=== PATIENT | female | born 1975 | race Caucasian/White ===

== ENCOUNTER 2022-09-23 11:40 | Outpatient (CLI) | payer OTHER, SELFPAY | END 2022-09-23 11:41 | disposition home or self-care (01) | LOC: CHSAUDIO 11:47 | PROVIDERS: PCP Family Medicine; Visit Provider Internal Medicine Hematology & Oncology | DX: Z01.10 Encounter for examination of ears and hearing without abnormal findings (principal) | CPT/HCPCS: 92557; 92567 ==

== ENCOUNTER 2023-06-06 12:00 | Emergency (ER) | payer OTHER, SELFPAY ==
[2023-06-06] VITALS (75 sets, daily range): BP systolic 86–111; BP diastolic 60–80; PULSE 71–114; RESP 13–35; TEMP 36.2; O2SAT 75–100
--- NOTE | ~2023-06-06 | XR_ITS ---
Portable chest x-ray Comparison: 06/06/2023 Clinical History: Hypoxia Findings: There is left-sided volume loss with leftward mediastinal shift and left lower lobe collap se, likely due to mucous plugging. Questionable minimal haziness left upper lobe. Right lung is clear . No pneumothorax. Left-sided Mediport is unchanged. Cardiomediastinal silhouette is stable. Bones a nd soft tissues are unremarkable. Impression: Left lower lobe collapse/atelectasis with associated left-sided volume loss. Reviewed, dictated and finalized at location M. Impression: Left lower lobe collapse/atelectasis with associated left-sided volume loss.
--- NOTE | ~2023-06-06 | CT_ITS ---
EXAMINATION: CT abdomen pelvis wo con DATE: 06/06/2023 17:15 INDICATION: Abdominal pain TECHNIQUE: Computed tomography (CT) of the abdomen and pelvis was performed without intravenous contr ast. Automated exposure control and iterative reconstruction technique were employed. The dose-length product was 169.88 mGy-cm. COMPARISON: None FINDINGS: Small patchy regions of consolidation with surrounding small centrilobular nodules and tree-in-bud pa ttern and groundglass opacity in the basilar left lower lobe. More subtle small region of tree-in-bud opacity in the basilar right lower lobe. There is an associated mucous plugging in both lower lobes. No pulmonary edema or pleural effusion. Heart size is normal. Caudal tip of a central venous cathete r seen at the superior cavoatrial junction. Atherosclerotic coronary artery calcific lesion. No peric ardial effusion. There is moderate amount of free intraperitoneal gas in the nondependent abdomen. Percutaneous gastro stomy tube bulb in the proximal body of the stomach and percutaneous gastrojejunostomy tube with bulb within the more distal body and catheter extending into the proximal jejunum approximately 15 cm bey ond the level of the ligament of Treitz. Liver, gallbladder, spleen, pancreas and bilateral adrenal g lands are normal. Multiple calcifications in the bilateral kidneys which could represent atherosclero tic calcifications, nonobstructing nephrolithiasis or combination thereof. There is a small wedge-sha ped region of dystrophic parenchymal calcific lesion at the upper pole of the left kidney. No hydrone phrosis. Bladder and retroverted uterus are unremarkable. There are surgical clips in the left and ri ght pelvis. Oral contrast material extends throughout the colon to the level of the rectum and is als o seen within the normal appendix. No dilated bowel to suggest obstruction. No abscess or evident guillermo e intraperitoneal fluid. No pathologically enlarged abdominal or pelvic lymphadenopathy. Chronic appe aring mild likely physiologic anterior wedging at T11-L1. IMPRESSION: 1. Opacities in the bilateral lower lobes, left greater than right with appearance and distribution f avoring endobronchial spread of disease including aspiration and/or pneumonia. 2. Moderate amount of free intraperitoneal gas which is likely related to the recently placed percuta neous gastrostomy tube and gastrojejunostomy tubes. Although could not exclude perforated viscus, the re are no other CT findings to suggest a source or elevate the level of suspicion. Dr. Frohnert discu ssed these findings with Dr. Esteves at 5:35 PM. 3. Multiple atherosclerotic calcifications and/or nonobstructing nephrolithiasis at the bilateral kid neys. Reviewed, dictated and finalized at location A. IMPRESSION: 1. Opacities in the bilateral lower lobes, left greater than right with appeara nce and distribution favoring endobronchial spread of disease including aspirat ion and/or pneumonia. 2. Moderate amount of free intraperitoneal gas which is likely related to the r ecently placed percutaneous gastrostomy tube and gastrojejunostomy tubes. Altho ugh could not exclude perforated viscus, there are no other CT findings to sugg est a source or elevate the level of suspicion. Dr. Burkett discussed these fi ndings with Dr. Esteves at 5:35 PM. 3. Multiple atherosclerotic calcifications and/or nonobstructing nephrolithiasi s at the bilateral kidneys.
--- NOTE | ~2023-06-06 | CT_ITS ---
EXAMINATION: CTA chest PE protocol DATE: 06/07/2023 12:01 INDICATION: Hypoxia. Shortness of breath. Low oxygen. History of lung and breast cancer. TECHNIQUE: Computed tomography angiography (CTA) of the chest was performed with 80 mL Omnipaque-350 intravenous contrast timed to evaluate the pulmonary arteries. Coronal maximum intensity projection 3 D-reconstructions were created by the technologist. Automated exposure control and iterative reconstr uction technique were employed. Exam dose: 144.68 mGy-cm total exam DLP. COMPARISON: 06/07/2023 chest 06/06/2023 2 view chest FINDINGS: There is diagnostic contrast enhancement of the pulmonary arteries and no evidence of pulmo nary embolism. Normal heart size. No pericardial effusion. No thoracic aortic aneurysm or dissection. There is an ET tube in the trachea There is extensive patchy consolidation of the left upper lobe and particularly lingula and atelectas is/consolidation of the left lower lobe with air bronchograms. There is associated leftward shift of the heart mediastinum. There are calcified right hilar and subcarinal nodes consistent with old pulmonary granulomatous dise ase. The right lung is clear of infiltrate or consolidation no pleural effusions or pneumothorax. IMPRESSION: No evidence of pulmonary embolism Extensive atelectasis and consolidation of the left upper lobe, especially lingula and complete atele ctasis/consolidation of the left lower lobe; associated prominent leftward shift of heart and mediast inum Reviewed, dictated and finalized at Location A. Reviewed, dictated and finalized at location B. IMPRESSION: No evidence of pulmonary embolism Extensive atelectasis and consolidation of the left upper lobe, especially ling lita and complete atelectasis/consolidation of the left lower lobe; associated p rominent leftward shift of heart and mediastinum
--- NOTE | ~2023-06-06 | XR_ITS ---
XR chest 2V DATE: 06/06/2023 12:42 INDICATION: Increased shortness of breath for one week. History of COPD, asthma. TECHNIQUE: 2 views, AP and lateral projections COMPARISON: 01/19/2022 portable AP chest FINDINGS: Of concern is the presence of free air beneath the diaphragm; if there has been no recent a bdominal surgery, ruptured hollow abdominal viscus is suspected. Left Port-A-Cath catheter tip overlies upper right atrium. Bilateral pulmonary hyperinflation. No pulmonary infiltrate or consolidation, pleural effusion or pul monary vascular congestion or pneumothorax is detected. Approximately 12 mm nodular density overlies the left lower lung, superimposing the anterior left fif th costochondral area; this might be nipple shadow but pulmonary nodular mass is not excluded. Repeat examination with nipple markers may be helpful. No pulmonary infiltrate or consolidation, pleural effusion or pulmonary vascular congestion or pneumo thorax is detected. IMPRESSION: Intraperitoneal free air; if the patient has not had a recent abdominal surgery, ruptured hollow abdominal viscus is likely Possible left lower lung pulmonary nodule versus nipple shadow; consider repeat with nipple markers Bilateral hyperinflation consistent with obstructive airways disease Left Port-A-Cath catheter tip overlying upper right atrium Dr. Sheikh notified Dr. Esteves, ER physician, of the presence of large amount of intraperitoneal free a ir on 06/06/2023 at 1304 hours. Surgical consultation was recommended by Dr. Sheikh to Dr. Esteves. Reviewed, dictated and finalized at location A. IMPRESSION: Intraperitoneal free air; if the patient has not had a recent abdom inal surgery, ruptured hollow abdominal viscus is likely Possible left lower lung pulmonary nodule versus nipple shadow; consider repeat with nipple markers Bilateral hyperinflation consistent with obstructive airways disease Left Port-A-Cath catheter tip overlying upper right atrium Dr. Sheikh notified Dr. Esteves, ER physician, of the presence of large amount of intraperitoneal free air on 06/06/2023 at 1304 hours. Surgical consultation was recommended by Dr. Sheikh to Dr. Esteves.
--- NOTE | ~2023-06-06 | XR_ITS ---
Portable chest x-ray Comparison: 06/07/2023 at 11:14 AM Clinical History: Tube placement Findings: Endotracheal tube is in satisfactory position. Left-sided Mediport is unchanged. There is probable complete left lung collapse with probable mucous plugging at the left mainstem bronchus. The re is associated leftward mediastinal shift and left-sided volume loss. Right lung clear. Cardiomedi astinal silhouette is stable. Bones and soft tissues are unremarkable. Impression: Complete left lung collapse. Support tubes, as above. Right lung clear. Reviewed, dictated and finalized at location M. Impression: Complete left lung collapse. Support tubes, as above. Right lung clear.
--- NOTE | 2023-06-06 12:18 | ECG_ITS ---
Measurements Intervals [place] Rate: 108 P: 81 CT: 113 QRS: 56 QRSD: 83 T: 194 QT: 407 QTc: 546 Interpretive Statements SINUS TACHYCARDIA WITH SHORT CT INTERVAL POSSIBLE RIGHT ATRIAL ENLARGEMENT [0.25mV P-WAVE] POSSIBLE LEFT ATRIAL ENLARGEMENT [-0.1mV P-WAVE IN V1/V2] ST AND T-WAVE ABNORMALITY, CONSIDER INFERIOR AND ANTEROLATERAL ISCHEMIA ABNORMAL ECG NO PREVIOUS ECG AVAILABLE FOR COMPARISON Electronically Signed On 06-07-2023 12:07:49 CDT by Jaya Bhatti M.D.
--- NOTE | 2023-06-06 12:19 | ED.WEAKNESS ---
HPI - Weakness General Chief complaint: Weakness <Les Esteves MD - Last Filed: 06/08/23 09:54> Stated complaint: weakness <Les Esteves MD - Last Filed: 06/08/23 09:54> Time Seen by Provider: 06/06/23 12:18 <Les Esteves MD - Last Filed: 06/08/23 09:54> Source: patient and family <Les Esteves MD - Last Filed: 06/08/23 09:54> Mode of arrival: wheelchair <Les Esteves MD - Last Filed: 06/08/23 09:54> Limitations: clinical condition <Les Esteves MD - Last Filed: 06/08/23 09:54> History of Present Illness HPI Narrative: 47 yo F with history of COPD, lung cancer, lumpectomy for possible breast cancer in the past, presents to [facility] ED for generalized weakness for 1 week. She had her second chemotherapy treatment for lung cancer also a week ago. Said she's also short of breath. She does not use O2 at home. She also has a GJ-tube placed that is not currently in use due to complications. She currently has a drainage tube placed that drains bilious materials out of her abdomen. Her surgeon is at [facility] in [place], [place]. She had the drain placement 2 days ago and instead of staying for monitoring, signed out AMA. On arrival to the ED, her O2 sat was 75%, which improved to 89-90% with 6L O2 by NC. Patient stated that she does not wish to be intubated but BIPAP is acceptable. <Les Esteves MD - Last Filed: 06/08/23 09:54> MD Complaint: generalized weakness <Les Esteves MD - Last Filed: 06/08/23 09:54> Onset (ago): day(s) <Les Esteves MD - Last Filed: 06/08/23 09:54> Duration: constant <Les Esteves MD - Last Filed: 06/08/23 09:54> Location: generalized <Les Esteves MD - Last Filed: 06/08/23 09:54> Migration: none <Les Esteves MD - Last Filed: 06/08/23 09:54> Severity: severe <Les Esteves MD - Last Filed: 06/08/23 09:54> Relieving factors: none <Les Esteves MD - Last Filed: 06/08/23 09:54> Exacerbating factors: none <Les Esteves MD - Last Filed: 06/08/23 09:54> Context: recent illness <Les Esteves MD - Last Filed: 06/08/23 09:54> Related Data Home medications: Home Medications Medication Instructions Recorded Confirmed buspirone 30 mg tablet 30 mg feeding tube BID 06/06/23 06/07/23 morphine 15 mg immediate release See Rx Instructions .Route .COMPLEX 06/06/23 06/06/23 tablet ondansetron HCl 8 mg tablet 8 mg feeding tube PRN PRN Nausea 06/06/23 06/06/23 sertraline 100 mg tablet 100 mg feeding tube DAILY 06/06/23 06/06/23 <Les Esteves MD - Last Filed: 06/08/23 09:54> Allergies/Adverse reactions: Allergies Allergy/AdvReac Type Severity Reaction Status Date / Time No Known Allergies Allergy Verified 06/06/23 12:40 <Les Esteves MD - Last Filed: 06/08/23 09:54> Review of Systems Review of Systems: All systems reviewed & are unremarkable except as noted in HPI and below <Les Esteves MD - Last Filed: 06/08/23 09:54> Exam Const: General: no acute distress, alert, awake and ill appearing <Les Esteves MD - Last Filed: 06/08/23 09:54> Nutritional Appearance: thin <Les Esteves MD - Last Filed: 06/08/23 09:54> Orientation/consciousness: oriented to person, oriented to place and oriented to time <Les Esteves MD - Last Filed: 06/08/23 09:54> Limitations: physical limitations <Les Esteves MD - Last Filed: 06/08/23 09:54> HENMT: Head: normal to inspection <Les Esteves MD - Last Filed: 06/08/23 09:54> Ears: hearing grossly normal bilaterally, external ears normal and TM's normal bilaterally <Les Esteves MD - Last Filed: 06/08/23 09:54> Face/Nose/Sinus: Normal external nose present, Normal nares present, No nasal polyps present, Normal nasal mucous membranes and turbinates present, Normal septum present, No nasal discharge present, normal facial exam, sinuses nontender and face symmetric <Les Esteves MD - Last Filed: 06/08/23 09:54> Face and sinus: normal fac
[2023-06-06 13:01] LABS: Base Excess ABG 14.4 mmol/L (0-2); HCO3 ABG 35.9 mmol/L (23-29); Oxygen Content ABG 16.7 %vol (16.0-22.0); Oxygen Saturation ABG 92.5 % (95-97); Oxyhemoglobin 91.5 % (94-100); PCO2 ABG 33.5 mmHg (35-45); PO2 ABG 59.5 mmHg (80-90)
[2023-06-06 13:04] LABS: Device NASAL CANNULA; Modified Allen's Test Pass; Site Drawn RIGHT RADIAL
[2023-06-06 13:05] LABS: pH ABG 7.65 (7.35-7.45)
[2023-06-06 13:09] LABS: Basophils Absolute Auto 0.03 K/mm3 (0.00-0.10); Basophils Percent Auto 0.3 % (0.0-1.0); Eosinophils Absolute Auto 0.05 K/mm3 (0.02-0.50); Eosinophils Percent Auto 0.4 % (1.0-6.0); Hematocrit 37.7 % (35.0-49.0); Hemoglobin 12.7 g/dL (12.0-15.0); Immature Granulocyte Absolute 0.06 K/mm3 (0.00-0.00); Immature Granulocyte Percent A 0.5 % (0.0-0.0); Lymphocytes Absolute Auto 0.98 K/mm3 (1.10-4.50); Lymphocytes Percent Auto 8.8 % (18.0-42.0); Mean Corpuscular HGB Conc 33.7 g/dL (32.0-36.0); Mean Corpuscular Hemoglobin 29.9 pg (27.0-31.0); Mean Corpuscular Volume 88.7 fL (78.0-102.0); Mean Platelet Volume 10.7 fl (9.2-11.8); Monocytes Absolute Auto 0.53 K/mm3 (0.10-0.90); Monocytes Percent Auto 4.8 % (2.0-11.0); Neutrophils Absolute Auto 9.5 K/mm3 (1.7-7.2); Neutrophils Percent Auto 85.2 % (50.0-70.0); Platelet Count Result 325 K/mm3 (150-420); Red Blood Count 4.25 M/mm3 (4.20-5.40); Red Cell Distribution Width 13.8 % (11.6-14.4); White Blood Count 11.1 K/mm3 (4.8-10.8)
[2023-06-06 13:24] LABS: Alanine Aminotransferase 133 U/L (14-59); Albumin Level 3.6 g/dL (3.4-5.0); Alkaline Phosphatase 179 U/L (46-116); Anion Gap 6 mmol/L (8-16); Aspartate Amino Transferase 60 U/L (15-37); Bilirubin,Total 1.1 mg/dL (0.00-1.00); Blood Urea Nitrogen 51 mg/dL (7-18); Calcium 9.5 mg/dL (8.5-10.1); Carbon Dioxide 41 mmol/L (21-32); Chloride 87 mmol/L (98-108); Estimated Glomerular Filt Rate 27; Glucose 106 mg/dL (70-99); Osmolality Calculated 291 mOsm/kg (285-295); Sodium 134 mmol/L (136-145); Total Protein 8.5 g/dL (6.4-8.2)
[2023-06-06 13:26] LABS: Potassium 1.9 mmol/L (3.5-5.1)
[2023-06-06] MEDS: HYDROmorphone HCL INJ (*CRX) 2 MG/ML VIAL 0.25 MG IV PUSH (13:53)
[2023-06-06] MEDS: KCL 40 MEQ/0.9% SOD CHL 1,000 ML 250 ML IV CONT ×2 (13:54→21:25)
[2023-06-06 14:27] LABS: Lactic Acid Reflex 1.2 mmol/L (0.4-2.0)
[2023-06-06] MEDS: PIPERACILLIN/TAZ 2.25G/NS 50ML 2.25 GM/50 ML BAG IVPB ×2 (14:45→20:06)
[2023-06-06 16:42] LABS: Troponin I 45.4 ng/L (0.00-60.4)
[2023-06-06] MEDS: IPRATROPIUM 0.5 MG/ALBUTEROL SULFATE 2.5 MG AMPUL.NEB 3 ML INHALATION (17:11)
[2023-06-06] MEDS: methylPREDNISolone SOD SUCC 125 MG VIAL IV PUSH (17:11)
--- NOTE | 2023-06-06 17:35 | PC.NURSE ---
PT RESTING PER BED, CALL [facility] IN [place], FAMILY AT BEDSIDE. DISCUSSED WITH PT AND FAMILY MEMBERS NO BED AVAILABILITY AT [facility]. ACCEPTANCE HAS BEEN DECLINED AT [facility]. OFFERED TO CALL [facility] OR OTHER HOSPITALS. PT AND FAMILY DECLINED. WILL WAIT FOR PLACEMENT AT [facility] SINCE HER DOCTOR AND ONCOLOGIST IS THERE.
[2023-06-06] MEDS: DEXTROSE 5%/0.45% SOD CHL 1,000 ML 100 ML IV CONT (18:07)
[2023-06-06 18:09] LABS: Potassium 2.7 mmol/L (3.5-5.1)
--- NOTE | 2023-06-06 18:12 | PC.NURSE ---
pt able to drink bottle of chocolate ensure.
--- NOTE | 2023-06-06 19:03 | PC.NURSE ---
REPORT TO KITA LACY. ALL QUESTIONS ANSWERED.
[2023-06-06 20:03] LABS: Appearance Urine Clear (Clear); Bilirubin Urine 1+ (Negative); Blood Urine Negative (Negative); Color Urine Light Yellow (Yellow); Glucose Urine UA Negative (Negative); Ketones Urine Negative (Negative); Leukocyte Esterase Ur Negative LEU/UL (Negative); Nitrate Urine Negative (Negative); Protein Urine 1+ (Negative); Urobilinogen Urine 0.2 mg/dL (0.2-1.0); pH Urine 7.5 (5.0-8.0)
[2023-06-06 20:15] LABS: Add Urine Microscopic? YES; Amorphous Sediment Urine Few; RBC Urine 0-2 /hpf (0-2); Squamous Epithelial Cell Urine Few /hpf (Few); WBC Urine 0-3 /hpf (0-3)
--- NOTE | 2023-06-06 20:15 | PC.NURSE ---
Addendum entered by Fina Pimentel RN 06/07/23 02:40: Pt up to bedside commode at this time. Original Note: Pt's bag that is hooked up to G-tube emptied at this time. 900mls of green liquid emptied at this time.
--- NOTE | 2023-06-06 22:00 | PC.NURSE ---
Pt placed in hospital bed at this time.
[2023-06-07] VITALS (69 sets, daily range): BP systolic 87–176; BP diastolic 55–94; PULSE 67–137; RESP 9–41; TEMP 36.7; O2SAT 5–100
[2023-06-07] MEDS: DEXTROSE 5%/0.45% SOD CHL 1,000 ML 100 ML IV CONT (02:24)
[2023-06-07] MEDS: PIPERACILLIN/TAZ 2.25G/NS 50ML 2.25 GM/50 ML BAG IVPB ×2 (02:25→10:35)
[2023-06-07 02:26] LABS: Potassium 2.9 mmol/L (3.5-5.1)
--- NOTE | 2023-06-07 02:38 | PC.NURSE ---
MD updated on new potassium level, holding potassium dose at this time per MD.
--- NOTE | 2023-06-07 02:40 | PC.NURSE ---
Pt up to bedside commode at this time.
[2023-06-07] MEDS: HYDROmorphone HCL INJ (*CRX) 2 MG/ML VIAL 0.25 MG IV PUSH (02:46)
--- NOTE | 2023-06-07 03:45 | PC.NURSE ---
Report recieved from Gabriella Harden. Pt currently sleeping c sister at bedside. VSS. RR even and nonlabored, monitor in place showing NSR. Call harris at pt side.
[2023-06-07 05:37] LABS: Estimated CRCL calculation 20 ml/min; Estimated Glomerular Filt Rate 31
--- NOTE | 2023-06-07 05:48 | PC.NURSE ---
Pt continues to sleep, no changes, VSS, still awaiting bed for placement at [facility].
--- NOTE | 2023-06-07 09:13 | PC.NURSE ---
patient states difficulty breathing, erp is aware and duo neb ordered.
[2023-06-07] MEDS: IPRATROPIUM 0.5 MG/ALBUTEROL SULFATE 2.5 MG AMPUL.NEB 3 ML INHALATION (09:21)
--- NOTE | 2023-06-07 09:30 | PC.NURSE ---
patient states she is having chest pain, erp verbal order for EKG and troponin ordered.
--- NOTE | 2023-06-07 09:35 | ECG_ITS ---
Measurements Intervals [place] Rate: 81 P: 77 DE: 104 QRS: 63 QRSD: 90 T: 25 QT: 455 QTc: 529 Interpretive Statements SINUS RHYTHM WITH SHORT DE INTERVAL ST DEVIATION AND MODERATE T-WAVE ABNORMALITY, CONSIDER ANTEROLATERAL ISCHEMIA [-0.1+ mV T-WAVE IN V3-V6] ST DEVIATION AND MODERATE T-WAVE ABNORMALITY, CONSIDER INFERIOR ISCHEMIA [-0.1+ mV T-WAVE IN II/aVF] PROLONGED QT INTERVAL ABNORMAL ECG COMPARED TO ECG 06/06/2023 12:44:40 SINUS RHYTHM NOW PRESENT Electronically Signed On 06-07-2023 12:08:36 CDT by Jaya Bhatti M.D.
--- NOTE | 2023-06-07 10:15 | PC.NURSE ---
patient requesting medication for anxiety, states her chest hurts and is short of breath.
--- NOTE | 2023-06-07 10:15 | PC.NURSE ---
erp made aware patient's o2 sats are dropping to the low 80's high 70's/
[2023-06-07] MEDS: LORazepam INJ (*CRX) 2 MG/ML VIAL 1 MG IV PUSH (10:31)
--- NOTE | 2023-06-07 10:40 | PC.NURSE ---
Erp made aware patients o2 sats are not improving and have dropping into the 50's and 40's he states order an ABG.
[2023-06-07] MEDS: MIDAZOLAM HCL (*CRX) 2 MG/2 ML VIAL 8 MG IV PUSH (10:50)
--- NOTE | 2023-06-07 10:50 | PC.NURSE ---
patient's o2 sats are not improving regardless of interventions by RN and Cardiopulmonary, patient moved to room 7 to prep for intubation.
[2023-06-07] MEDS: SUCCINYLCHOLINE CHLORIDE 20 MG/ML 10 ML VIAL 50 MG IV PUSH ×2 (10:55→11:19)
[2023-06-07 10:57] LABS: Base Excess ABG 6.3 mmol/L (0-2); HCO3 ABG 27.5 mmol/L (23-29); Oxygen Content ABG 9.4 %vol (16.0-22.0); Oxygen Saturation ABG 58.6 % (95-97); Oxyhemoglobin 58.2 % (94-100); PCO2 ABG 28.9 mmHg (35-45); Total Hemoglobin 11.5 g/dL (12.0-18.0)
[2023-06-07 10:59] LABS: Device NON-REBREATHER MASK; Modified Allen's Test Pass; PO2 ABG 27.1 mmHg (80-90); Site Drawn RIGHT RADIAL
[2023-06-07] MEDS: MIDAZOLAM HCL (*CRX) 5 MG/ML VIAL 10 MG (11:15)
--- NOTE | 2023-06-07 11:22 | PC.NURSE ---
Patient intubated at 1122 with a size7 tube.
[2023-06-07] MEDS: MIDAZOLAM 100MG/NS 100ML(*CRX) 100 MG/100 ML BAG 10 MG (11:30)
[2023-06-07 11:54] LABS: Base Excess ABG 5.5 mmol/L (0-2); HCO3 ABG 31.2 mmol/L (23-29); Oxygen Content ABG 3.7 %vol (16.0-22.0); Oxygen Saturation ABG 22.8 % (95-97); Oxyhemoglobin 22.4 % (94-100); PCO2 ABG 50.7 mmHg (35-45); Total Hemoglobin 11.8 g/dL (12.0-18.0); pH ABG 7.41 (7.35-7.45)
[2023-06-07 11:55] LABS: Device VENTILATOR; Modified Allen's Test Pass; PO2 ABG 18.6 mmHg (80-90); Site Drawn LEFT RADIAL
[2023-06-07 12:10] LABS: Arterial Blood Gas Vent Mode CMV; Arterial Blood Gas Ventilator rate 16 /MIN
[2023-06-07 12:11] LABS: Arterial Blood Gas PEEP 5 cmH2O; Arterial Blood Gas Tidal Volume 450 ml; Fractional Inspired Oxygen 100 %
[2023-06-07 12:34] LABS: Base Excess ABG 4.2 mmol/L (0-2); HCO3 ABG 28.6 mmol/L (23-29); Oxygen Content ABG 5.6 %vol (16.0-22.0); Oxygen Saturation ABG 34.7 % (95-97); Oxyhemoglobin 34.4 % (94-100); PCO2 ABG 42.2 mmHg (35-45); Total Hemoglobin 11.6 g/dL (12.0-18.0); pH ABG 7.45 (7.35-7.45)
[2023-06-07 12:35] LABS: Fractional Inspired Oxygen 100 %; PO2 ABG 22.9 mmHg (80-90)
[2023-06-07 12:36] LABS: Device VENTILATOR
[2023-06-07 12:42] LABS: Arterial Blood Gas Vent Mode CMV
[2023-06-07 12:44] LABS: Arterial Blood Gas PEEP 5 cmH2O; Arterial Blood Gas Tidal Volume 450 ml; Arterial Blood Gas Ventilator rate 16 /MIN
--- NOTE | 2023-06-09 17:05 | PC.NURSE ---
mrsa screen final results: isolate : MRSA isolated. spoke with [facility] at [facility], she is aware of results.
--- NOTE | 2023-06-12 14:50 | PC.NURSE ---
final blood culture results; no growth after 5 days, no further treatment or action needed.
== END 2023-06-07 13:27 | disposition short-term general hospital (02) ==
PROVIDERS: Emergency Medicine; Emergency Provider Emergency Medicine; PCP Family Medicine
DX: E43 Unspecified severe protein-calorie malnutrition (principal); J44.1 Chronic obstructive pulmonary disease with (acute) exacerbation; C34.90 Malignant neoplasm of unspecified part of unspecified bronchus or lung; G89.18 Other acute postprocedural pain; R10.9 Unspecified abdominal pain; J18.9 Pneumonia, unspecified organism; J96.90 Respiratory failure, unspecified, unspecified whether with hypoxia or hypercapnia; C06.9 Malignant neoplasm of mouth, unspecified; Z68.1 Body mass index [BMI] 19.9 or less, adult; Z85.3 Personal history of malignant neoplasm of breast
CPT/HCPCS: 31500; 36415; 36600; 71045; 71046; 71275; 74176; 80053; 81001; 82565; 82805; 83605; 84132; 84484; 85025; 87040; 87081; 93005; 94640; 96361; 96365; 96366; 96367; 96368; 96375; 99291; J0330; J1170; J2060; J2250; J2543; J2930; J3370; Q9967

== ENCOUNTER 2023-06-15 13:24 | Outpatient (CLI) | payer OTHER, SELFPAY ==
--- NOTE | ~2023-06-15 | XR_ITS ---
EXAMINATION: XR chest 2V Exam Date/Time: 06/15/2023 13:30 CDT HISTORY: Pneumonia FOLLOW UP Comparison: 06/07/2023; CTPA 06/07/2023. RESULT: Lines, tubes, and devices: Implanted left chest port terminating in the right atrium. Lungs and pleura: Persistent subsegmental airspace opacities in the left lower lung. Minimal bilater al posterior costophrenic angle blunting. Cardiomediastinal silhouette: Stable. Other: No acute osseous or upper abdominal finding. IMPRESSION: Improving left lung atelectasis/consolidation. Trace bilateral effusions versus chronic pleural paren chymal scarring. Reviewed, dictated and finalized at location K. IMPRESSION: Improving left lung atelectasis/consolidation. Trace bilateral effusions versus chronic pleural parenchymal scarring.
== END 2023-06-15 13:25 | disposition home or self-care (01) ==
LOC: CHSIMG 13:26
PROVIDERS: PCP Family Medicine; Visit Provider Physician Assistant
DX: J18.9 Pneumonia, unspecified organism (principal); R91.8 Other nonspecific abnormal finding of lung field
CPT/HCPCS: 71046

== ENCOUNTER 2023-06-24 15:29 | Outpatient (CLI) | payer OTHER, SELFPAY ==
[2023-06-24 16:09] LABS: Hematocrit 30.7 % (35.0-49.0); Hemoglobin 9.7 g/dL (12.0-15.0); Mean Corpuscular HGB Conc 31.6 g/dL (32.0-36.0); Mean Corpuscular Hemoglobin 31.8 pg (27.0-31.0); Mean Corpuscular Volume 100.7 fL (78.0-102.0); Mean Platelet Volume 12.7 fl (9.2-11.8); Platelet Count Result 401 K/mm3 (150-420); Red Blood Count 3.05 M/mm3 (4.20-5.40); Red Cell Distribution Width 19.5 % (11.6-14.4); White Blood Count 4.7 K/mm3 (4.8-10.8)
[2023-06-24 16:33] LABS: Alanine Aminotransferase 17 U/L (14-59); Albumin Level 2.4 g/dL (3.4-5.0); Alkaline Phosphatase 97 U/L (46-116); Anion Gap 10 mmol/L (8-16); Aspartate Amino Transferase < 10 U/L (15-37); Bilirubin,Total 0.8 mg/dL (0.00-1.00); Blood Urea Nitrogen 12 mg/dL (7-18); Calcium 8.5 mg/dL (8.5-10.1); Carbon Dioxide 24 mmol/L (21-32); Chloride 98 mmol/L (98-108); Estimated Glomerular Filt Rate > 60; Glucose 88 mg/dL (70-99); Magnesium 2.3 mg/dL (1.8-2.4); Osmolality Calculated 272 mOsm/kg (285-295); Sodium 132 mmol/L (136-145); Total Protein 6.9 g/dL (6.4-8.2)
[2023-06-24 16:45] LABS: Band Neutrophils Percent 1 % (0-6); Basophils Percent Manual 0 % (0-1); Eosinophils Absolute Manual 0.14 K/mm3 (0.02-0.5); Eosinophils Percent Manual 3 % (1-6); Lymphocytes Absolute Manual 0.89 K/mm3 (1.1-4.5); Lymphocytes Percent Manual 19 % (18-44); Monocytes Absolute Manual 0.09 K/mm3 (0.1-0.90); Monocytes Percent Manual 2 % (3-9); Neutrophils Absolute Manual 3.57 K/mm3 (1.7-7.2); Neutrophils Percent Manual 75 % (46-73); Platelet Estimate Adequate (Adequate); Total Cells Counted 100
== END 2023-06-24 15:30 | disposition home or self-care (01) ==
PROVIDERS: PCP Family Medicine; Visit Provider Internal Medicine Hematology & Oncology
DX: C06.2 Malignant neoplasm of retromolar area (principal)
CPT/HCPCS: 36415; 80053; 83735; 85025

== ENCOUNTER 2023-06-25 18:19 | Outpatient (CLI) | payer OTHER, SELFPAY ==
[2023-06-25 19:36] LABS: Anion Gap 7 mmol/L (8-16); Blood Urea Nitrogen 12 mg/dL (7-18); Calcium 8.6 mg/dL (8.5-10.1); Carbon Dioxide 29 mmol/L (21-32); Chloride 101 mmol/L (98-108); Estimated Glomerular Filt Rate > 60; Glucose 116 mg/dL (70-99); Osmolality Calculated 284 mOsm/kg (285-295); Potassium 4.1 mmol/L (3.5-5.1); Sodium 137 mmol/L (136-145)
== END 2023-06-25 18:20 | disposition home or self-care (01) ==
PROVIDERS: PCP Family Medicine; Visit Provider Physician Assistant
DX: E87.5 Hyperkalemia (principal)
CPT/HCPCS: 36415; 80048

== ENCOUNTER 2023-08-09 12:22 | Outpatient (CLI) | payer OTHER, SELFPAY ==
[2023-08-09] MEDS: EPOETIN ALFA EPBX 40000 UNIT/ML SUB-Q (12:52)
[2023-08-09 12:56] VITALS: BMI 17.2
[2023-08-09 12:57] VITALS: BP 122/69; PULSE 92; RESP 14; TEMP 36.6; O2SAT 97
--- NOTE | 2023-08-09 12:58 | PC.NURSE ---
Patient here for Retacrit injection. Per Dr. Federioc urias to give off Wednesday08/06/23 blood work. Hgb 9.9. Education given. All concerns answered. Retacrit injection administered. *see MAR. Tolerated well. Safe exit of hospital per ambulatory and self.
== END 2023-08-09 12:23 | disposition home or self-care (01) ==
LOC: CHSLAB 12:25 → CHSTREATRM 12:49
PROVIDERS: PCP Family Medicine; Visit Provider Internal Medicine Hematology & Oncology
DX: D64.81 Anemia due to antineoplastic chemotherapy (principal)
CPT/HCPCS: 96372; Q5106

== ENCOUNTER 2023-08-15 17:05 | Emergency (ER) | payer OTHER, SELFPAY ==
[2023-08-15] VITALS (15 sets, daily range): BP systolic 99–136; BP diastolic 57–89; PULSE 100–142; RESP 12–24; TEMP 36.6–36.7; O2SAT 95–98
--- NOTE | ~2023-08-15 | CT_ITS ---
EXAMINATION: CT abdomen pelvis wo con DATE: 08/15/2023 18:12 INDICATION: Lower abdominal pain with nausea and vomiting TECHNIQUE: Computed tomography (CT) of the abdomen and pelvis was performed without intravenous contr ast. Automated exposure control and iterative reconstruction technique were employed. The dose-length product was 176.31 mGy-cm. COMPARISON: CT dated 06/06/2023 FINDINGS: Again seen is bronchial plugging with bubbly mucus in the right lower lobe. There is been some improv ement in tree-in-bud opacities in the left lower lobe but with new mild tree-in-bud opacities in the posterior lingula which are consistent with endobronchial spread of disease either aspiration or pneu monia. Mild discoid atelectasis in the left lower lobe and lingula. No pleural effusion. Heart size i s normal. Small pericardial effusion. Atherosclerotic coronary artery calcifications. Tip of a director internal control al jugular central venous catheter extends caudally to the mid right atrium. There is elevation the l eft hemidiaphragm likely resulting from marked fluid distention of the stomach which is refluxing thr ough the open gastroesophageal junction into the distal esophagus. Percutaneous gastrojejunostomy tub e which extends approximately 12 cm beyond the level of the ligament of Treitz into the proximal jeju num with the distal tip in the left pelvis. Liver, gallbladder, spleen, pancreas and bilateral adrena l glands are normal. Again seen are multiple calcifications at the bilateral renal arabella with pattern favoring atherosclerotic calcifications rather than nonobstructing nephrolithiasis. No dilated loops of bowel to suggest obstruction. Normal appendix. Nearly decompressed bladder and retroverted uterus are unremarkable. 2 left-sided and one right-sided tubal ligation clips in the region of the adnexa. No free intraperitoneal gas or fluid. No pathologically enlarged abdominal or pelvic lymphadenopathy. Likely physiologic mild anterior wedging at T11 and T12. IMPRESSION: 1. Mucous plugging in the right lower lobar bronchi and tree-in-bud opacities with some improvement i n the left lower lobe and new in the lingula which suggests either evolving pneumonia or aspiration. 2. Marked fluid distention of the stomach with reflux of fluid into the visualized lower esophagus. 3. Unchanged percutaneous gastrojejunostomy tube. The prior percutaneous gastrostomy tube has been re moved. 4. Multiple unchanged calcifications at the bilateral renal arabella with configuration favoring atherosc lerotic calcification over nonobstructing nephrolithiasis. 5. Unchanged small pericardial effusion. Reviewed, dictated and finalized at location A. KDOWN WORKER IMPRESSION: 1. Mucous plugging in the right lower lobar bronchi and tree-in-bud opacities w ith some improvement in the left lower lobe and new in the lingula which sugges ts either evolving pneumonia or aspiration. 2. Marked fluid distention of the stomach with reflux of fluid into the visuali zed lower esophagus. 3. Unchanged percutaneous gastrojejunostomy tube. The prior percutaneous gastro stomy tube has been removed. 4. Multiple unchanged calcifications at the bilateral renal arabella with configura tion favoring atherosclerotic calcification over nonobstructing nephrolithiasis . 5. Unchanged small pericardial effusion.
--- NOTE | ~2023-08-15 | XR_ITS ---
EXAMINATION: XR chest 1V portable DATE: 08/15/2023 19:00 INDICATION: Shortness of breath TECHNIQUE: frontal view of the chest was obtained. COMPARISON: Chest radiograph dated 06/15/23 FINDINGS: Left internal jugular central venous port catheter with distal tip in the right atrium. Lungs now sohan ear clear with significant improvement in prior opacities in the left mid and lower lung zone. Residu al subtle tree-in-bud opacities were however identified in the left lower lobe and lingula and immedi ately prior CT of the abdomen and pelvis consistent with improving pneumonia. No new airspace opaciti es, pleural effusion or pneumothorax. Heart size is normal. Calcified right hilar lymph nodes consist ent with old granulomatous disease. Right breast biopsy marker clip. IMPRESSION: 1. Lungs appear clear on the current radiograph although mild tree-in-bud opacities not visible on th e plain radiographs are present in the left lower lobe and lingula on the immediately prior CT the ab domen and pelvis consistent with improving pneumonia. Reviewed, dictated and finalized at location A. TICIAN APPRENTICE IMPRESSION: 1. Lungs appear clear on the current radiograph although mild tree-in-bud opaci ties not visible on the plain radiographs are present in the left lower lobe an d lingula on the immediately prior CT the abdomen and pelvis consistent with im proving pneumonia.
--- NOTE | 2023-08-15 17:28 | ED.ABDPAIN ---
HPI - Abdominal Pain General Chief Complaint: Abdominal Pain Stated Complaint: nausea; vomiting Time Seen by Provider: 08/15/23 17:13 Source: patient Mode of arrival: ambulatory Limitations: no limitations History of Present Illness HPI narrative: patient is a 47-year-old female with throat cancer and metastatic cysts throughout many organs here with lower abdominal pain. She has been sick for 4 days. Associated nausea vomiting and diarrhea. She has a PEG tube in place and feeds at night through the tube and further each orally during the day. She said her PEG tube is working good. MD elicited complaint: abdominal pain Pertinent past history: other ( Patient had a bowel obstruction earlier this year and was flown to another facility) Onset (ago): day(s) (4) Pain Consistency: constant Location: RLQ, LLQ and suprapubic Severity: moderate Pain scale (0-10): 6 Quality: sharp Radiation: none Migration to: no migration Exacerbating factors: nothing Relieving factors: nothing Context: confirms other ( current chemotherapy last dose 2 weeks ago) Associated symptoms: nausea, vomiting, diarrhea and chills Related Data Home Medications Medication Instructions Recorded Confirmed buspirone 30 mg tablet 30 mg feeding tube BID 06/06/23 08/15/23 morphine 15 mg immediate release See Rx Instructions .Route .COMPLEX 06/06/23 08/15/23 tablet ondansetron HCl 8 mg tablet 8 mg feeding tube PRN PRN Nausea 06/06/23 08/15/23 sertraline 100 mg tablet 100 mg feeding tube DAILY 06/06/23 08/15/23 Allergies Allergy/AdvReac Type Severity Reaction Status Date / Time No Known Allergies Allergy Verified 08/15/23 17:14 Review of Systems Review of Systems: All systems reviewed & are unremarkable except as noted in HPI and below Constitutional: Constitutional: Reports no additional constitutional complaints Eyes: Eyes: Reports no additional eye complaints ENT: Reports system reviewed and no additional complaints, except as documented Cardiovascular: Cardiovascular: Reports no additional cardiovascular complaints Respiratory: Respiratory: Reports no additional respiratory complaints Gastrointestinal: Gastrointestinal: Reports no additional gastrointestinal complaints Genitourinary: Genitourinary: Reports no additional female genitourinary complaints Musculoskeletal: Musculoskeletal: Reports no additional musculoskeletal complaints Integumentary/Breasts: Skin/Breast: Reports system reviewed and no additional complaints, except as docu Neurologic: Reports system reviewed and no additional complaints, except as documented Psychiatric: Psychiatric: Reports no additional psychiatric complaints Endocrine: Endocrine: Reports no additional endocrine complaints Hematologic/Lymphatic: Hematologic/Lymphatic: Reports no additional hematologic/lymphatic complaints Allergic/Immunologic: Allergic/Immunologic: Reports no additional allergic/immunologic complaints Exam Const: General: ill appearing Nutritional Appearance: thin Orientation/consciousness: patient oriented x3 Limitations: no limitations HENMT: Head: normal to inspection Ears: external ears normal Face/Nose/Sinus: Normal external nose present Eyes: Conjunctivae: conjunctivae normal Pupils: Equal, round and reactive pupils present EOM: EOMs intact bilaterally Neck: Neck: normal visual inspection Chest: Chest palpation & inspection: normal inspection of the chest Resp: Effort & Inspection: normal respiratory effort Auscultation: clear to auscultation bilaterally, no crackles and no rales Cardio: Rate: regular rate Rhythm: regular rhythm Heart sounds: no murmurs GI: Inspection: non-distended GI Palp: Yes Soft to palpation, No Tenderness to palpation present (GI), No Guarding due to palpation present (GI) and No Rigid due to palpation Auscultation: bowels sounds not normal, bowel sounds present, no hyperactive bowel sounds and Hypoactive bowel sounds present Other:
[2023-08-15] MEDS: SODIUM CHLORIDE 0.9% IV 1,000 ML 999 ML IV CONT (17:58)
[2023-08-15 18:03] LABS: Basophils Absolute Auto 0.03 K/mm3 (0.00-0.10); Basophils Percent Auto 0.2 % (0.0-1.0); Eosinophils Absolute Auto 0.01 K/mm3 (0.02-0.50); Eosinophils Percent Auto 0.1 % (1.0-6.0); Hematocrit 40.5 % (35.0-49.0); Hemoglobin 13.5 g/dL (12.0-15.0); Immature Granulocyte Absolute 0.09 K/mm3 (0.00-0.00); Immature Granulocyte Percent A 0.6 % (0.0-0.0); Immature Platelet Fraction Pct 2.8 % (1.0-7.0); Lymphocytes Absolute Auto 1.53 K/mm3 (1.10-4.50); Lymphocytes Percent Auto 9.6 % (18.0-42.0); Mean Corpuscular HGB Conc 33.3 g/dL (32.0-36.0); Mean Corpuscular Hemoglobin 28.6 pg (27.0-31.0); Mean Corpuscular Volume 85.8 fL (78.0-102.0); Mean Platelet Volume 10.5 fl (9.2-11.8); Monocytes Absolute Auto 1.32 K/mm3 (0.10-0.90); Monocytes Percent Auto 8.2 % (2.0-11.0); Neutrophils Percent Auto 81.3 % (50.0-70.0); Nucleated Red Blood Cells Absolute Auto 0.02 K/mm3 (0.00-0.00); Nucleated Red Blood Cells Perc 0.1 % (0-0.0); Platelet Count Result 552 K/mm3 (150-420); Red Blood Count 4.72 M/mm3 (4.20-5.40); Red Cell Distribution Width 15.3 % (11.6-14.4)
[2023-08-15 18:16] LABS: Alanine Aminotransferase 22 U/L (14-59); Alkaline Phosphatase 121 U/L (46-116); Anion Gap 14 mmol/L (8-16); Aspartate Amino Transferase < 10 U/L (15-37); Bilirubin,Total 0.4 mg/dL (0.00-1.00); Blood Urea Nitrogen 103 mg/dL (7-18); Calcium 10.1 mg/dL (8.5-10.1); Carbon Dioxide 33 mmol/L (21-32); Chloride 83 mmol/L (98-108); Estimated CRCL calculation 19 ml/min; Estimated Glomerular Filt Rate 23; Glucose 126 mg/dL (70-99); Lipase 59 U/L (16-77); Magnesium 3.4 mg/dL (1.8-2.4); Osmolality Calculated 304 mOsm/kg (285-295); Partial Thromboplastin Time 29.9 SEC (23.90-30.70); Potassium 4.6 mmol/L (3.5-5.1); Prothrombin Time 10.9 Seconds (9.50-12.10); Sodium 130 mmol/L (136-145); Total Protein 9.4 g/dL (6.4-8.2)
[2023-08-15 18:21] LABS: Lactic Acid Reflex 3.7 mmol/L (0.4-2.0)
[2023-08-15] MEDS: PIPERACILLN/TAZ 3.375GM/NS50ML 3.375 GM/50 ML BAG IVPB (18:44)
--- NOTE | 2023-08-15 18:52 | ECG_ITS ---
Measurements Intervals [place] Rate: 111 P: 61 MS: 84 QRS: 52 QRSD: 81 T: 0 QT: 215 QTc: 293 Interpretive Statements SINUS TACHYCARDIA WITH SHORT MS INTERVAL MINIMAL Q WAVES- ANTEROLAT/INF LEADS NONSPECIFIC T-WAVE ABNORMALITY- HIGH LATERAL LEADS PROLONGED QT INTERVAL BASELINE ARTIFACT- AVL, V1-V2 ABNORMAL ECG COMPARED TO ECG 06/07/2023 09:41:15 SINUS TACHYCARDIA NOW PRESENT Electronically Signed On 08-16-2023 7:00:38 INVESTMENT STRATEGIST by Eh Huertsa D.O.
[2023-08-15] MEDS: SODIUM CHLORIDE 0.9% IV 500 ML 999 ML IV CONT (18:53)
--- NOTE | 2023-08-15 19:16 | PC.NURSE ---
Report received, pt resting POC for transfer discussed c pt and family. Currently awaiting call back from [facility] for bed availability for transfer.
[2023-08-15] MEDS: SODIUM CHLORIDE 0.9% IV 1,000 ML 150 ML IV CONT (19:26)
[2023-08-15 19:41] LABS: Troponin I 8.1 ng/L (0.00-60.4)
[2023-08-15] MEDS: ONDANSETRON INJ 4 MG/2 ML VIAL IV PUSH ×2 (19:47→21:16)
[2023-08-15 20:04] LABS: Influenza A QL RT-PCR Negative (Negative); Influenza B QL RT-PCR Negative (Negative); SARS-CoV-2 RNA PCR Negative (Negative)
[2023-08-15 20:05] LABS: RSV RNA, RT-PCR Negative (Negative)
--- NOTE | 2023-08-15 20:46 | PC.NURSE ---
Pt resting c eyes closed, IVF and Vanc continue to infuse s difficulty. Updated pt and family on wait for bed at [facility]. Call harris at pt side.
[2023-08-15 20:59] LABS: Reflex Lactic Acid Yes or No Add Lactic
[2023-08-15 21:49] LABS: Lactic Acid 2.9 mmol/L (0.4-2.0)
[2023-08-15 21:59] LABS: Bilirubin Urine Negative (Negative); Blood Urine Negative (Negative); Color Urine Light Yellow (Yellow); Glucose Urine UA Negative (Negative); Ketones Urine Negative (Negative); Leukocyte Esterase Ur Negative LEU/UL (Negative); Nitrate Urine Negative (Negative); Protein Urine Trace (Negative); Urobilinogen Urine 0.2 mg/dL (0.2-1.0); pH Urine 7.5 (5.0-8.0)
[2023-08-15 22:01] LABS: Add Urine Microscopic? YES; Amorphous Sediment Urine Moderate; Appearance Urine Slightly Cloudy (Clear); Bacteria Urine 1+ /hpf; Squamous Epithelial Cell Urine Few /hpf (Few)
[2023-08-15] MEDS: METOCLOPRAMIDE HCL INJ 10 MG/2 ML VIAL 5 MG IV PUSH (22:16)
--- NOTE | 2023-08-15 22:52 | PC.NURSE ---
Report given to Dannie at [facility] for transfer, paged [facility] for transfer, unable to take, paged [facility] for transfer. Awaiting EMS, pt updated on rm #, resting, VSS.
--- NOTE | 2023-08-22 14:21 | PC.NURSE ---
Final Blood culture report: no growth after 5 days, no further treatment or action needed.
== END 2023-08-15 23:17 | disposition short-term general hospital (02) ==
PROVIDERS: Emergency Provider Emergency Medicine; PCP Family Medicine
DX: A41.9 Sepsis, unspecified organism (principal); C78.39 Secondary malignant neoplasm of other respiratory organs; N17.9 Acute kidney failure, unspecified; J69.0 Pneumonitis due to inhalation of food and vomit; E86.0 Dehydration; Z79.899 Other long term (current) drug therapy; Z20.822 Contact with and (suspected) exposure to COVID-19
CPT/HCPCS: 36415; 71045; 74176; 80053; 81001; 83605; 83690; 83735; 84484; 85025; 85055; 85610; 85730; 87040; 87637; 93005; 96361; 96365; 96367; 96375; 96376; 99285; J2405; J2543; J2765; J3370; J7030; J7040; J7060

== ENCOUNTER 2023-09-21 12:51 | Outpatient (CLI) | payer OTHER, SELFPAY ==
[2023-09-21 13:20] LABS: Basophils Absolute Auto 0.03 K/mm3 (0.00-0.10); Basophils Percent Auto 0.4 % (0.0-1.0); Eosinophils Absolute Auto 0.08 K/mm3 (0.02-0.50); Hematocrit 30.4 % (35.0-49.0); Hemoglobin 9.5 g/dL (12.0-15.0); Immature Granulocyte Absolute 0.04 K/mm3 (0.00-0.00); Immature Granulocyte Percent A 0.5 % (0.0-0.0); Lymphocytes Percent Auto 13.1 % (18.0-42.0); Mean Corpuscular HGB Conc 31.3 g/dL (32.0-36.0); Mean Corpuscular Hemoglobin 28.4 pg (27.0-31.0); Mean Corpuscular Volume 90.7 fL (78.0-102.0); Mean Platelet Volume 10.2 fl (9.2-11.8); Neutrophils Absolute Auto 6.6 K/mm3 (1.7-7.2); Platelet Count Result 257 K/mm3 (150-420); Red Blood Count 3.35 M/mm3 (4.20-5.40); White Blood Count 8.4 K/mm3 (4.8-10.8)
[2023-09-21 13:52] LABS: Alanine Aminotransferase 19 U/L (14-59); Alkaline Phosphatase 88 U/L (46-116); Anion Gap 3 mmol/L (8-16); Aspartate Amino Transferase 31 U/L (15-37); Bilirubin,Total 0.2 mg/dL (0.00-1.00); Blood Urea Nitrogen 15 mg/dL (7-18); Calcium 8.9 mg/dL (8.5-10.1); Carbon Dioxide 34 mmol/L (21-32); Chloride 97 mmol/L (98-108); Estimated Glomerular Filt Rate > 60; Glucose 90 mg/dL (70-99); Magnesium 2.1 mg/dL (1.8-2.4); Osmolality Calculated 278 mOsm/kg (285-295); Potassium 4.4 mmol/L (3.5-5.1); Sodium 134 mmol/L (136-145); Total Protein 7.6 g/dL (6.4-8.2)
== END 2023-09-21 12:52 | disposition home or self-care (01) ==
LOC: CHSLAB 12:59
PROVIDERS: PCP Family Medicine; Visit Provider Internal Medicine Hematology & Oncology
DX: C06.2 Malignant neoplasm of retromolar area (principal)
CPT/HCPCS: 36415; 80053; 83735; 85025

== ENCOUNTER 2024-03-14 19:03 | Emergency (ER) | payer OTHER, SELFPAY ==
[2024-03-14] VITALS (14 sets, daily range): BP systolic 101–118; BP diastolic 57–79; PULSE 96–99; RESP 18; TEMP 36.7; O2SAT 96–100
--- NOTE | ~2024-03-14 | CT_ITS ---
CT OF left hip EXAMINATION: CT hip LT wo con DATE: 03/14/2024 21:29 INDICATION: Fall, abnormal x-ray TECHNIQUE: Computed tomography (CT) of the left hip was performed without intravenous contrast. Autom ated exposure control and iterative reconstruction technique were employed. The dose-length product w as 111.51 mGy-cm. COMPARISON: X-ray left hip and pelvis same date; CT abdomen pelvis 08/15/2023 FINDINGS: The distal portion of a gastrojejunostomy tube is visualized. Atherosclerotic calcifications. Tubal l igation clips. Slightly decreased bone mineralization. Mild degenerative change in the left hip. Nond isplaced left femoral neck subcapital fracture. Minimal left hip joint fluid. Subcutaneous stranding over the left hip, likely contusion. IMPRESSION: Nondisplaced subcapital fracture of the left femoral neck. Reviewed, dictated and finalized at location K.
--- NOTE | ~2024-03-14 | XR_ITS ---
EXAM: XR shoulder LT min 2V DATE: 03/14/2024 19:50 HISTORY: FALL LT SHOULDER PAIN,LROM . COMPARISON: None available. FINDINGS: Left chest port, terminating at the cavoatrial junction. Decreased mineralization. Nondisp laced fracture of the surgical neck of the left humeral head. Mildly distracted fracture fragment inv olving the greater tuberosity. No lytic or blastic lesion. Joint spaces are maintained. No erosion or periosteal change. Soft tissues within normal limits. IMPRESSION: Nondisplaced fracture of the proximal left humerus at the level of the surgical neck, wit h involvement of the greater tuberosity. Reviewed, dictated and finalized at location K. IMPRESSION: Nondisplaced fracture of the proximal left humerus at the level of the surgical neck, with involvement of the greater tuberosity.
--- NOTE | ~2024-03-14 | XR_ITS ---
EXAM: XR hip LT 2V w AP pelvis DATE: 03/14/2024 19:50 HISTORY: fall,LT HIP PAIN . COMPARISON: CT abdomen pelvis 08/15/2023. FINDINGS: Decreased mineralization. Suggestion of a transverse lucency at the subcapital femoral nec k. No lytic or blastic lesion. Mild degenerative changes in the bilateral hips. Tubal ligation clips. Gastrojejunostomy tube. No erosion or periosteal change. Soft tissues within normal limits. IMPRESSION: Possible nondisplaced subcapital left femoral neck fracture, consider CT of the pelvis or further evaluation. Reviewed, dictated and finalized at location K. IMPRESSION: Possible nondisplaced subcapital left femoral neck fracture, consid er CT of the pelvis or further evaluation.
--- NOTE | 2024-03-14 19:13 | ED.UPPEXIN ---
HPI - Extremity Injury (Upper) General Chief Complaint: Extremity Injury, Upper Stated Complaint: fall/shoulder pain Time Seen by Provider: 03/14/24 19:10 Source: patient and family Mode of arrival: ambulatory Limitations: no limitations History of Present Illness HPI narrative: Patient is a 48-year-old female who has neck cancer currently in therapy. She took a fall to the left shoulder from a ground level prior to arrival this afternoon. She was tripped by her dog and fell onto the left shoulder and has pain. No head or neck injuries. MD complaint: injury to: left and shoulder Onset (ago): hour(s) (2) Other Extremity Injury: Left: shoulder Other injuries: none Place: home Severity: moderate Severity scale (1-10): 5 Relieving factors: immobilization Exacerbating factors: movement of extremity Context: fall Associated symptoms: denies other symptoms Related Data Home Medications Medication Instructions Recorded Confirmed buspirone 30 mg tablet 30 mg feeding tube BID 06/06/23 03/14/24 morphine 15 mg immediate release See Rx Instructions .Route .COMPLEX 06/06/23 03/14/24 tablet ondansetron HCl 8 mg tablet 8 mg feeding tube PRN PRN Nausea 06/06/23 03/14/24 sertraline 100 mg tablet 100 mg feeding tube DAILY 06/06/23 03/14/24 Allergies Allergy/AdvReac Type Severity Reaction Status Date / Time No Known Allergies Allergy Verified 03/14/24 19:15 Review of Systems Review of Systems: All systems reviewed & are unremarkable except as noted in HPI and below Constitutional: Constitutional: Reports no additional constitutional complaints Eyes: Eyes: Reports no additional eye complaints ENT: Reports system reviewed and no additional complaints, except as documented Cardiovascular: Cardiovascular: Reports no additional cardiovascular complaints Respiratory: Respiratory: Reports no additional respiratory complaints Gastrointestinal: Gastrointestinal: Reports no additional gastrointestinal complaints Genitourinary: Genitourinary: Reports no additional female genitourinary complaints Musculoskeletal: Musculoskeletal: Reports no additional musculoskeletal complaints Integumentary/Breasts: Skin/Breast: Reports system reviewed and no additional complaints, except as docu Neurologic: Reports system reviewed and no additional complaints, except as documented Psychiatric: Psychiatric: Reports no additional psychiatric complaints Endocrine: Endocrine: Reports no additional endocrine complaints Hematologic/Lymphatic: Hematologic/Lymphatic: Reports no additional hematologic/lymphatic complaints Allergic/Immunologic: Allergic/Immunologic: Reports no additional allergic/immunologic complaints Exam Const: General: ill appearing chronically Nutritional Appearance: thin Orientation/consciousness: patient oriented x3 Limitations: no limitations HENMT: Head: normal to inspection Ears: external ears normal Face/Nose/Sinus: Normal external nose present Eyes: Conjunctivae: conjunctivae normal Pupils: Equal, round and reactive pupils present EOM: EOMs intact bilaterally Neck: Neck: normal visual inspection Chest: Chest palpation & inspection: normal inspection of the chest Resp: Effort & Inspection: normal respiratory effort and not labored Auscultation: clear to auscultation bilaterally Cardio: Rate: regular rate Rhythm: regular rhythm Heart sounds: no murmurs GI: Inspection: non-distended GI Palp: Yes Soft to palpation and No Tenderness to palpation present (GI) Auscultation: normal bowel sounds : General: Yes bladder normal to palpation Back/Spine/Pelvis: Back: no CVA tenderness Skin: General skin exam: normal color Rashes: no rashes Wounds: no wounds Neuro: General: patient oriented x3 Cranial nerves: Yes Nystagmus not present Speech: normal speech Extrem: General: abnormal to inspection, no clubbing, cyanosis or edema and no pedal edema Other: Left shoulder is tender to palpation and defo
[2024-03-14] MEDS: KETOROLAC (*BKC) 60 MG/2 ML VIAL IM (19:25)
--- NOTE | 2024-03-14 21:55 | ECG_ITS ---
[address] Test Date: 2024-03-14 Pat Name: Jennifer Navas Department: Room: Gender: F Heating Element Builder: : 1975 Requested By: Yohannes Florez Order Number: [id number] Reading MD: Fabby Singh M.D. Measurements Intervals [place] Rate: 94 P: 89 SC: 111 QRS: 79 QRSD: 77 T: 90 QT: 390 QTc: 489 Interpretive Statements SINUS RHYTHM WITH SHORT SC INTERVAL No previous ECG available for comparison Electronically Signed On 03-15-2024 13:47:17 CDT by Fabby Singh M.D.
[2024-03-14 22:13] LABS: Basophils Absolute Auto 0.02 K/mm3 (0.00-0.10); Basophils Percent Auto 0.2 % (0.0-1.0); Eosinophils Absolute Auto 0.04 K/mm3 (0.02-0.50); Eosinophils Percent Auto 0.5 % (1.0-6.0); Hematocrit 31.6 % (35.0-49.0); Hemoglobin 9.7 g/dL (12.0-15.0); Immature Granulocyte Absolute 0.06 K/mm3 (0.00-0.00); Immature Granulocyte Percent A 0.7 % (0.0-0.0); Lymphocytes Percent Auto 13.2 % (18.0-42.0); Mean Corpuscular HGB Conc 30.7 g/dL (32-36); Mean Corpuscular Hemoglobin 27.9 pg (27.0-31.0); Mean Corpuscular Volume 90.8 fL (78.0-102.0); Mean Platelet Volume 10.5 fl (9.2-11.8); Monocytes Absolute Auto 0.59 K/mm3 (0.10-0.90); Monocytes Percent Auto 7.1 % (2.0-11.0); Neutrophils Absolute Auto 6.55 K/mm3 (1.70-7.20); Neutrophils Percent Auto 78.3 % (50.0-70.0); Platelet Count Result 225 K/mm3 (150-420); Red Blood Count 3.48 M/mm3 (4.20-5.40); Red Cell Distribution Width 14.7 % (11.6-14.4); White Blood Count 8.4 K/mm3 (4.8-10.8)
[2024-03-14 22:25] LABS: Partial Thromboplastin Time 27.1 Sec (23.9-30.70); Prothrombin Time 10.7 Seconds (9.50-12.1)
[2024-03-14 22:28] LABS: Alanine Aminotransferase 33 U/L (14-59); Albumin Level 2.8 g/dL (3.4-5.0); Alkaline Phosphatase 92 U/L (46-116); Anion Gap 7 mmol/L (4-12); Aspartate Amino Transferase 23 U/L (15-37); Bilirubin,Total 0.3 mg/dL (0.00-1.00); Blood Urea Nitrogen 15 mg/dL (7-18); Calcium 8.8 mg/dL (8.5-10.1); Carbon Dioxide 31 mmol/L (21-32); Chloride 99 mmol/L (98-108); Estimated CRCL calculation 74 ml/min; Estimated Glomerular Filt Rate > 60; Glucose 86 mg/dL (70-99); Osmolality Calculated 283 mOsm/kg (285-295); Potassium 3.7 mmol/L (3.5-5.1); Sodium 137 mmol/L (136-145); Total Protein 7.1 g/dL (6.4-8.2)
[2024-03-15] MEDS: MORPHINE SULFATE (*CRX) 4 MG/ML INJ IV PUSH (00:41)
== END 2024-03-15 00:45 | disposition short-term general hospital (02) ==
PROVIDERS: Emergency Provider Emergency Medicine; PCP Family Medicine
DX: S42.215A Unspecified nondisplaced fracture of surgical neck of left humerus, initial encounter for closed fracture (principal); C76.0 Malignant neoplasm of head, face and neck; Z79.899 Other long term (current) drug therapy; Z79.891 Long term (current) use of opiate analgesic; W01.0XXA Fall on same level from slipping, tripping and stumbling without subsequent striking against object, initial encounter; Y92.009 Unspecified place in unspecified non-institutional (private) residence as the place of occurrence of the external cause
CPT/HCPCS: 36415; 71045; 73030; 73502; 73700; 80053; 85025; 85610; 85730; 93005; 96372; 96374; 99285; J1885; J2270

== ENCOUNTER 2024-05-09 14:41 | Outpatient (CLI) | payer OTHER, SELFPAY ==
--- NOTE | ~2024-05-09 | XR_ITS ---
XR chest 2V Ordering provider: Iban Ye, LEAD CYTOGENETIC TECHNOLOGIST History: 48 years Female with . COPD . Comparison: March 14, 2024 FINDINGS: Left central line with the tip overlying superior vena cava. MEDIASTINUM: The cardiac silhouette is not enlarged. LUNGS: No effusions or pneumothorax. Pneumonia in the left lower lobe. Underlying emphysematous leonard es. OTHER: No free air under the diaphragm. Degenerative changes of the spine. IMPRESSION: Left lower lobe pneumonia. Reviewed, dictated and finalized at location A. IMPRESSION: Left lower lobe pneumonia.
== END 2024-05-09 14:42 | disposition home or self-care (01) ==
LOC: CHSIMG 14:43
PROVIDERS: PCP Family Medicine; Visit Provider Registered Nurse
DX: J44.9 Chronic obstructive pulmonary disease, unspecified (principal); J18.9 Pneumonia, unspecified organism
CPT/HCPCS: 71046

== ENCOUNTER 2024-08-16 09:46 | Emergency (ER) | payer OTHER, SELFPAY ==
[2024-08-16] VITALS (15 sets, daily range): BP systolic 99–126; BP diastolic 59–90; PULSE 80–113; RESP 18; TEMP 37.2; O2SAT 89–100
--- NOTE | ~2024-08-16 | XR_ITS ---
Portable chest x-ray Comparison: 05/09/2024 Clinical History: Shortness of breath Findings: Stable left-sided central venous line. No acute pulmonary abnormality seen. Possible COPD. Cardiomediastinal silhouette is stable. Bones and soft tissues are unremarkable. Impression: Clear lungs. Possible COPD. Stable support line. Reviewed, dictated and finalized at location . AMURAL DIRECTOR Impression: Clear lungs. Possible COPD. Stable support line.
--- NOTE | ~2024-08-16 | CT_ITS ---
CT soft tissue neck w con Ordering provider: Jesús Olmedo MD History: 48 years Female with . SUBMANDIBULAR ABSCESS,SWELLING,ERRYTHEMA . Comparison: None. Technique: CT soft tissues neck was performed with contrast. . Automated exposure control and iterat wallace reconstruction technique were employed. The dose-length product was 146.13 mGy-cm. 75 mL Omnipaqu e 350 was given IV. Findings: LOWER HEAD: The visualized brain parenchyma, optic globes/orbits and mastoids are normal. Pansinusi tis with postoperative in the right maxillary sinus area and adjacent bones.. SALIVARY GLANDS: Soft tissue density with nonenhancing areas is seen in the right parotid gland area extending to the submandibular gland and down on the right side of the neck to the thyroid gland. Ext ension of the mass is seen into the right parapharyngeal space and right false vocal cord. Extension also seen into the prevertebral area and to the right side of the tongue. 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 Atherosclerotic changes on the left side with narrowing of about 50%. JUGULAR VEINS: Left central line is seen. Absent right jugular vein. TONSILS: The right tonsil is possibly involved in the mentioned mass. PHARYNX, LARYNX AND TRACHEA: Patent with herniation of the air passage to the left side at the level of the false vocal cord. THORACIC INLET/VISUALIZED UPPER CHEST: Pleural-based nodule is seen in the left lung measuring 6 mm. This is most likely metastatic.. SKELETAL: Mild degenerative changes. IMPRESSION: 1. 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 Multiple Areas of necrosis or infection are seen in this mass. Further evaluation advised. 2. Nodule in the left lung upper lobe medially. 3. 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 4. 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 5. Pansinusitis Reviewed, dictated and finalized at location A. OWER DEVELOPMENT MANAGER IMPRESSION: 1. Large mass extending from the right parotid gland to the area below the rig ht thyroid gland, to the area of the right submandibular gland with extension t o the right side of the tongue, right parapharyngeal, prevertebral and right fa lse vocal cord area with deviation of the air passage of the left. Multiple Ar eas of necrosis or infection are seen in this mass. Further evaluation advised. 2. Nodule in the left lung upper lobe medially. 3. 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 4. 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 5. Pansinusitis
--- NOTE | ~2024-08-16 | CT_ITS ---
CT brain & sinus wo con Ordering provider: Jesús Olmedo MD History: 48 years Female with . HX head/neck CA, RT submandibular abscess . Comparison: None. Technique: CT of the head without contrast. Radiation reduction technique utilized.The dose-length pr oduct was 756.67 mGy-cm. FINDINGS: BRAIN PARENCHYMA AND CSF SPACES: Old lacunar infarct in the left basal ganglia. No midline shift, mas s effect or hemorrhage. The brain parenchyma and CSF spaces are otherwise normal. MASTOIDS: Effusion in the right mastoid air cells and right middle ear. BONES: The bones appear intact. SOFT TISSUES: Visualized nasopharynx is normal. Superficial soft tissues are normal. IMPRESSION: No acute intracranial findings. CT brain & sinus wo con Ordering provider: Jesús Olmedo MD History: . HX head/neck CA, RT submandibular abscess . Comparison: None. Technique: Thin slice axial CT of the facial bones was performed without contrast. Coronal and sagit thai reformatted images were also obtained. . Automated exposure control and iterative reconstruction technique were employed. The dose-length product was 756.67 mGy-cm. FINDINGS: PARANASAL SINUSES: Soft tissue density seen in the left maxillary sinus suggestive of sinusitis. Dest ruction of the posterior wall of the right maxillary sinus is also noted. No destructive changes in the medial wall of the right maxillary sinus and right pterygoid bone. Dest ructive changes in the right lower mandible is also seen in the area of the body. Right sphenoid sinu s disease. Bilateral ethmoid sinus. BONES: Destructive changes seen in the right mandibular condyle.. ORBITS AND SUPERFICIAL SOFT TISSUES: The optic globes and orbits are normal. The superficial soft tis sues are normal. VISUALIZED MASTOIDS: The right paracentral shows effusion. LIMITED VISUALIZED BRAIN PARENCHYMA: Brain atrophy with deep white matter ischemic changes. IMPRESSION: Destructive changes and postoperative changes seen in the right maxillary sinus, right mandible and p terygoid bones. Right sphenoid, left maxillary and bilateral ethmoid sinus disease. Right mastoid air cells and middle ear effusion. Reviewed, dictated and finalized at location A. R BRICKLAYER IMPRESSION: No acute intracranial findings. CT brain & sinus wo con Ordering provider: Jesús Olmedo MD History: . HX head/neck CA, RT submandibular abscess . Comparison: None. Technique: Thin slice axial CT of the facial bones was performed without contra st. Coronal and sagittal reformatted images were also obtained. . Automated e xposure control and iterative reconstruction technique were employed. The dose- length product was 756.67 mGy-cm. FINDINGS: PARANASAL SINUSES: Soft tissue density seen in the left maxillary sinus suggest wallace of sinusitis. Destruction of the posterior wall of the right maxillary sinu s is also noted. No destructive changes in the medial wall of the right maxillary sinus and righ t pterygoid bone. Destructive changes in the right lower mandible is also seen in the area of the body. Right sphenoid sinus disease. Bilateral ethmoid sinus. BONES: Destructive changes seen in the right mandibular condyle.. ORBITS AND SUPERFICIAL SOFT TISSUES: The optic globes and orbits are normal. Th e superficial soft tissues are normal. VISUALIZED MASTOIDS: The right paracentral shows effusion. LIMITED VISUALIZED BRAIN PARENCHYMA: Brain atrophy with deep white matter ische crispin changes. IMPRESSION: Destructive changes and postoperative changes seen in the right maxillary sinus , right mandible and pterygoid bones. Right sphenoid, left maxillary and bilateral ethmoid sinus disease. Right mastoid air cells and middle ear effusion.
--- NOTE | 2024-08-16 10:17 | ED_ITS ---
HPI - Skin/Abscess/Foreign Bdy General Chief complaint: Skin/Abscess/Foreign Body Stated complaint: jaw pain Time Seen by Provider: 08/16/24 09:57 Source: patient Mode of arrival: ambulatory Limitations: no limitations History of Present Illness HPI narrative: 48-year-old female, with a history of COPD, recent pneumonia, lung cancer, breast cancer, SMA syndrome with GJ tube, recent left subcapital hip fracture, left humeral fracture, oral cancer diagnosed 2 year ago treated with radiation and chemo with her last chemo 1 week ago presents to the ED with -- right cheek / submandibular region/neck swelling with purulent nasal discharge and abscess draining pus from the submandibular region. -- Swelling of the left cheek Patient denies any fever or chills. No headache. No ear pain or discharge. patient has been started on Levaquin since now August 09. MD complaint: abscess/boil and other ( Brawny induration with erythema over the right she the submandibular region and the right side of the neck with a draining submandibular abscess.) Onset (ago): day(s) ( Two days) Tetanus up to date: no Location: face and neck Severity: severe Quality: aching Pain Consistency: constant Relieving factors: none Exacerbating factors: none Context: none Associated symptoms: denies other symptoms and shortness of breath Treatments prior to arrival: other ( received chemo 1 week ago.) Related Data Home Medications Medication Instructions Recorded Confirmed buspirone 30 mg tablet 30 mg feeding tube BID 06/06/23 08/16/24 morphine 15 mg immediate release See Rx Instructions .Route .COMPLEX 06/06/23 08/16/24 tablet ondansetron HCl 8 mg tablet 8 mg feeding tube PRN PRN Nausea 06/06/23 08/16/24 sertraline 100 mg tablet 100 mg feeding tube DAILY 06/06/23 08/16/24 albuterol sulfate 90 mcg/actuation 2 puff inhalation PRN PRN Wheezing 08/16/24 08/16/24 aerosol inhaler aspirin 81 mg chewable tablet 81 mg feeding tube DAILY 08/16/24 08/16/24 levofloxacin 500 mg tablet 500 mg feeding tube DAILY 08/16/24 08/16/24 loperamide 2 mg capsule 2 mg feeding tube PRN PRN Diarrhea 08/16/24 08/16/24 loratadine 10 mg tablet (Allergy 10 mg feeding tube DAILY 08/16/24 08/16/24 Relief (loratadine)) Allergies Allergy/AdvReac Type Severity Reaction Status Date / Time No Known Allergies Allergy Verified 08/16/24 09:54 Review of Systems Review of Systems: All systems reviewed & are unremarkable except as noted in HPI and below Constitutional: Constitutional: Reports as per HPI, Reports no additional constitutional complaints and Reports weakness Eyes: Eyes: Reports as per HPI and Reports no additional eye complaints ENT: Reports system reviewed and no additional complaints, except as documented Comments: Dysphagia which Left chronic left nostril purulent discharge halitosis Cardiovascular: Cardiovascular: Reports as per HPI and Reports no additional cardiovascular complaints Respiratory: Respiratory: Reports as per HPI and Reports no additional respiratory complaints Gastrointestinal: Gastrointestinal: Reports as per HPI and Reports no additional gastrointestinal complaints Comments: GJ tube in place. Genitourinary: Genitourinary: Reports no additional female genitourinary complaints Musculoskeletal: Musculoskeletal: Reports no additional musculoskeletal complaints and Reports as per HPI Integumentary/Breasts: Comments: Right cheek/ submandibular lesion/neck swollen with erythema and purulent discharge from the submandibular region. Neurologic: Reports system reviewed and no additional complaints, except as documented and Reports as per HPI Psychiatric: Psychiatric: Reports no additional psychiatric complaints and Reports as per HPI Endocrine: Endocrine: Reports no additional endocrine complaints and Reports as per HPI Hematologic/Lymphatic: Hematologic/Lymphatic: Reports no additional hematolog ic/lymphatic complaints and Reports as per HPI Allergic/Immunologic: Allergic/Immunologic: Reports no additional allergic/immunologic complaints and Reports as per HPI [facility] Past Medical History Medical History (Updated 08/16/24 @ 14:07 by Jesús Olmedo MD) Breast cancer COPD (chronic obstructive pulmonary disease) Lung cancer Throat cancer Exam Narrative: blood pressure is 99/68 with a heart rate of 113. Temperature 37.2?. Oxygen saturation of 99% on room air. Const: Orientation/consciousness: patient oriented x3 HENMT: Ears: external ears normal and TM's normal bilaterally Face/Nose/Sinus: Nasal discharge present ( right nostril has a purulent drainage.) Face and sinus: normal facial exam ( Right facial / submandibular region/neck swelling/brawny induration with ) Mouth: Yes Normal oral and palatal mucosa present ( Could not be visualized.) Teeth and gingiva: dentition normal ( Edentulous) Throat: posterior oropharynx normal ( cannot visualize pharynx.) Eyes: Conjunctivae: conjunctivae normal Pupils: Equal, round and reactive pupils present EOM: EOMs intact bilaterally Direct Ophthalmoscopy: no photophobia Neck: Other: Right neck brawny induration Chest: Chest palpation & inspection: normal inspection of the chest Resp: Effort & Inspection: normal respiratory effort Auscultation: clear to auscultation bilaterally Cardio: Rate: regular rate Rhythm: regular rhythm GI: GI Palp: Yes Soft to palpation Auscultation: normal bowel sounds Back/Spine/Pelvis: Back: no CVA tenderness Skin: General skin exam: normal color Rashes: no rashes Wounds: no wounds ( submandibular swelling with purulent discharge) Neuro: General: patient oriented x3, moves all extremities, no meningeal signs and no focal motor deficits Cranial nerves: Yes Nystagmus not present Speech: Abnormal speech present Extrem: General: normal to inspection and no clubbing, cyanosis or edema Course Course Emergency Course: right pneumothorax-- patient has a history of COPD. She is in no respiratory distress. She is saturating 99% on room air with a respiratory rate of 18. right facial cellulitis with purulent discharge from right nostril and drool is purulent. Right submandibular cellulitis /abscess right parotid mass pansinusitis with right mastoid and right ear effusion. destructive changes of the right maxilla / mandible /pterygoid Vital Signs Vital signs: Vital Signs Temperature 37.2 C 08/16/24 09:46 Pulse Rate 113 H 08/16/24 09:46 Respiratory Rate 18 08/16/24 09:46 Blood Pressure 99/68 L 08/16/24 09:46 Pulse Oximetry 99 08/16/24 09:46 Oxygen Delivery Room Air 08/16/24 09:46 Temperature 37.2 C 08/16/24 09:46 Pulse Rate 98 08/16/24 14:08 Respiratory Rate 18 08/16/24 14:08 Blood Pressure 117/60 08/16/24 14:08 Pulse Oximetry 98 08/16/24 14:08 Oxygen Delivery Room Air 08/16/24 13:15 MDM - Skin/Abscess/Foreign Bdy MDM Narrative Medical decision making narrative: Right apical pneumothorax pansinusitis with right middle ear/mastoid effusion right parotid mass destructive changes of the right maxilla/ mandible /pterygoid exclusion of the right jugular vein and near occlusion of the right carotid anemia Differential Diagnosis Differential diagnosis: Likely abscess of skin or subcutaneous tissue and donna lulitis Lab Data Attestation: I reviewed the patient's lab results. 08/16/24 10:44 08/16/24 10:44 Labs: Lab Results 08/16/24 08/16/24 08/16/24 Range/Units 10:44 10:47 10:48 WBC 7.6 (4.8-10.8) K/mm3 RBC 3.05 L (4.20-5.40) M/mm3 Hgb 8.3 L (12.0-15.0) g/dL Hct 26.9 L (35.0-49.0) % MCV 88.2 (78.0-102.0) fL MCH 27.2 (27.0-31.0) pg MCHC 30.9 L (32-36) g/dL RDW 15.5 H (11.6-14.4) % Plt Count 238 (150-420) K/mm3 MPV 9.6 (9.2-11.8) fl Immature Gran % (Auto) 0.3 H (0.0-0.0) % Neut % (Auto) 84.5 H (50.0-70.0) % Lymph % (Auto) 9.4 L (18.0-42.0) % [place] % (Auto) 5.0 (2.0-11.0) % Eos % (Auto) 0.4 L (1.0-6.0) % Baso % (Auto) 0.4 (0.0-1.0) % Lymph # (Auto) 0.71 L (1.10-4.50) K/mm3 [place] # (Auto) 0.38 (0.10-0.90) K/mm3 Eos # (Auto) 0.03 (0.02-0.50) K/mm3 Baso # (Auto) 0.03 (0.00-0.10) K/mm3 Abs Immat Gran (auto) 0.02 H (0.00-0.00) K/mm3 Absolute Neuts (auto) 6.38 (1.70-7.20) K/mm3 Absolute Nucleated RBC 0.00 (0.00-0.00) K/mm3 Nucleated RBC % 0.0 (0-0.0) % PT 10.4 (9.50-12.1) Seconds INR 0.9 APTT 30.5 (23.9-30.70) Sec Sodium 138 (136-145) mmol/L Potassium 3.9 (3.5-5.1) mmol/L Chloride 99 (98-108) mmol/L Carbon Dioxide 36 H (21-32) mmol/L Anion Gap 3 L (4-12) mmol/L BUN 22 H (7-18) mg/dL Creatinine 0.56 (0.55-1.02) mg/dL Estim Creat Clear Calc 70 ml/min Estimated GFR > 60 (59 - ) Glucose 107 H (70-99) mg/dL Calculated Osmolality 289 (285-295) mOsm/kg Lactic Acid 0.6 (0.4-2.0) mmol/L Uric Acid 3.0 (2.6-6.0) mg/dL Calcium 8.6 (8.5-10.1) mg/dL Total Bilirubin 0.2 (0.00-1.00) mg/dL AST 16 (15-37) U/L ALT 18 (14-59) U/L Alkaline Phosphatase 76 (46-116) U/L Troponin I 5.2 (0.00-60.4) ng/L Total Protein 6.8 (6.4-8.2) g/dL Albumin 2.4 L (3.4-5.0) g/dL Lipase 15 L (16-77) U/L TSH 2.64 (0.36-3.74) uIU/mL Urine Color Light yellow (Yellow) Urine Appearance Cloudy A (Clear) Urine pH 8.5 H (5.0-8.0) Ur Specific [place] 1.010 (1.010-1.020) Urine Protein Negative (Negative) Urine Glucose (UA) Negative (Negative) Urine Ketones Negative (Negative) Ur Blood (Man) Negative (Negative) Urine Nitrate Negative (Negative) Urine Bilirubin Negative (Negative) Urine Urobilinogen 0.2 (0.2-1.0) mg/dL Leukocyte Esterase Rfl Negative (Negative) IDALIA/UL Urine RBC None seen (0-2) /hpf Urine WBC None seen (0-3) /hpf Ur Squamous Epith Cells Few (Few) /hpf Amorphous Sediment Moderate H (None) Urine Bacteria Trace (None) /hpf Nasal MRSA (PCR) Detected A* (NOT DETECTE) Discharge Plan Discharge Clinical Impression: Parotid mass, Malignant neoplasm of throat Abscess of skin or subcutaneous tissue Qualifiers: Site of cutaneous abscess: neck Qualified Code(s): L02.11 - Cutaneous abscess of neck Pansinusitis Qualifiers: Chronicity: subacute Qualified Code(s): J01.40 - Acute pansinusitis, unspecified Patient Disposition: Still a Patient Condition: Stable Additional Instructions: transfer the patient to [facility] in [place]. Patient has been accepted by Dr. Marie. Prescriptions: No Action ondansetron HCl 8 mg tablet 8 mg feeding tube PRN PRN (Reason: Nausea) sertraline 100 mg tablet 100 mg feeding tube DAILY buspirone 30 mg tablet 30 mg feeding tube BID morphine 15 mg tablet See Rx Instructions .ROUTE .COMPLEX Rx Instructions: DIRECTED loperamide 2 mg capsule 2 mg feeding tube PRN PRN (Reason: Diarrhea) aspirin 81 mg tablet,chewable 81 mg feeding tube DAILY levofloxacin 500 mg tablet 500 mg feeding tube DAILY albuterol sulfate 90 mcg/actuation HFA aerosol inhaler 2 puff INHALATION PRN PRN (Reason: Wheezing) loratadine [Allergy Relief (loratadine)] 10 mg tablet 10 mg feeding tube DAILY Follow-up/Referrals: Rishi,MD Mel[place] [Primary Care Provider] - Time of Disposition: 15:19
[2024-08-16 10:55] LABS: Basophils Absolute Auto 0.03 K/mm3 (0.00-0.10); Basophils Percent Auto 0.4 % (0.0-1.0); Eosinophils Absolute Auto 0.03 K/mm3 (0.02-0.50); Eosinophils Percent Auto 0.4 % (1.0-6.0); Hematocrit 26.9 % (35.0-49.0); Hemoglobin 8.3 g/dL (12.0-15.0); Immature Granulocyte Absolute 0.02 K/mm3 (0.00-0.00); Immature Granulocyte Percent A 0.3 % (0.0-0.0); Lymphocytes Absolute Auto 0.71 K/mm3 (1.10-4.50); Lymphocytes Percent Auto 9.4 % (18.0-42.0); Mean Corpuscular HGB Conc 30.9 g/dL (32-36); Mean Corpuscular Hemoglobin 27.2 pg (27.0-31.0); Mean Corpuscular Volume 88.2 fL (78.0-102.0); Mean Platelet Volume 9.6 fl (9.2-11.8); Monocytes Absolute Auto 0.38 K/mm3 (0.10-0.90); Neutrophils Absolute Auto 6.38 K/mm3 (1.70-7.20); Neutrophils Percent Auto 84.5 % (50.0-70.0); Platelet Count Result 238 K/mm3 (150-420); Red Blood Count 3.05 M/mm3 (4.20-5.40); Red Cell Distribution Width 15.5 % (11.6-14.4); White Blood Count 7.6 K/mm3 (4.8-10.8)
--- NOTE | 2024-08-16 10:58 | PC.NURSE ---
FAMILY IS AT BEDSIDE. PT IS AWAITING RESULTS FOR CT SCAN. BLOOD WORK HAS BEEN OBTAINED. WILL CONTINUE TO MONITOR.
[2024-08-16 11:10] LABS: INR 0.9; Partial Thromboplastin Time 30.5 Sec (23.9-30.70); Prothrombin Time 10.4 Seconds (9.50-12.1)
[2024-08-16 11:16] LABS: Lactic Acid Reflex 0.6 mmol/L (0.4-2.0)
[2024-08-16 11:20] LABS: Alanine Aminotransferase 18 U/L (14-59); Albumin Level 2.4 g/dL (3.4-5.0); Alkaline Phosphatase 76 U/L (46-116); Anion Gap 3 mmol/L (4-12); Aspartate Amino Transferase 16 U/L (15-37); Bilirubin,Total 0.2 mg/dL (0.00-1.00); Blood Urea Nitrogen 22 mg/dL (7-18); Calcium 8.6 mg/dL (8.5-10.1); Carbon Dioxide 36 mmol/L (21-32); Chloride 99 mmol/L (98-108); Estimated CRCL calculation 70 ml/min; Estimated Glomerular Filt Rate > 60; Glucose 107 mg/dL (70-99); Lipase 15 U/L (16-77); Osmolality Calculated 289 mOsm/kg (285-295); Potassium 3.9 mmol/L (3.5-5.1); Sodium 138 mmol/L (136-145); Total Protein 6.8 g/dL (6.4-8.2)
[2024-08-16 11:21] LABS: Troponin I 5.2 ng/L (0.00-60.4)
[2024-08-16 11:22] LABS: Thyroid Stimulating Hormone 2.64 uIU/mL (0.36-3.74)
[2024-08-16] MEDS: LACTATED RINGERS 500 ML 999 ML IV CONT (11:36)
[2024-08-16 12:00] LABS: MRSA (PCR) DETECTED (NOT DETECTE)
[2024-08-16] MEDS: PIPERACILLN/TAZ 3.375GM/NS50ML 3.375 GM/50 ML BAG IVPB (12:26)
--- NOTE | 2024-08-16 12:29 | PC.NURSE ---
PT WAS SLEEPING WITHOUT DISTRESS NOTED. PT HAS THICK, MARAVILLA COLORED DROOL NOTED, FOUL ODOR IS NOTED. PT IS AWAITING RESULTS AT THIS TIME. WILL CONTINUE TO MONITOR.
[2024-08-16] MEDS: VANCOMYCIN 1,000 MG/NS 250 ML 1,000 MG/250 ML BAG 250 MG IVPB (13:02)
--- NOTE | 2024-08-16 13:40 | PC.NURSE ---
PT STATES SHE IS NOT GOING TO BE TRANSFERRED, SHE WANTS TO GO HOME. ERP IS AT BEDSIDE, EXPLAINING RISKS AND BENEFITS TO PT AND CHILDREN. TO AWAIT DECISION. PT IS AWAITING RETURN CALL FROM [facility] FOR BED STATUS AT THIS TIME. WILL CONTINUE TO MONITOR. PT VSS PER MONITOR. WILL CONTINUE TO MONITOR. NO RESP DISTRESS NOTED.
--- NOTE | 2024-08-16 14:10 | PC.NURSE ---
pt is upset that she cannot go outside to smoke, declines a nicotine patch. pt reports she is ready to go home. pt is awaiting room assignment at [facility], she has been placed on a wait list. pt and family are aware of plan of care. will continue to monitor.
[2024-08-16 14:35] LABS: Add Urine Microscopic? YES; Appearance Urine Cloudy (Clear); Bilirubin Urine Negative (Negative); Blood Urine Negative (Negative); Color Urine Light Yellow (Yellow); Glucose Urine UA Negative (Negative); Ketones Urine Negative (Negative); Leukocyte Esterase Ur Negative LEU/UL (Negative); Nitrate Urine Negative (Negative); Protein Urine Negative (Negative); Urobilinogen Urine 0.2 mg/dL (0.2-1.0); pH Urine 8.5 (5.0-8.0)
[2024-08-16 14:38] LABS: Amorphous Sediment Urine Moderate; Bacteria Urine Trace /hpf; RBC Urine None seen /hpf (0-2); Squamous Epithelial Cell Urine Few /hpf (Few); WBC Urine None seen /hpf (0-3)
--- NOTE | 2024-08-16 14:45 | PC.NURSE ---
pt ambulatory to rr and back to exam room without difficulty. ua was collected and sent to lab. family at bedside. will continue to monitor.
--- NOTE | 2024-08-16 16:02 | PC.NURSE ---
PT HAS BEEN ACCEPTED TO [facility], EMS HAS BEEN NOTIFIED. FAMILY IS AT BEDSIDE. PT HAS BEEN PLACED IN CLEAN GOWN AND WARM BLANKETS WERE PROVIDED. PT HAD THICK, GRAYISH DROOL NOTED TO GOWN. PT IS CURRENTLY SLEEPING ON STRETCHER, HAS BEEN NOTIFIED OF PLAN OF CARE AND IS AGREEABLE AT THIS TIME. BELONGINGS LIST HAS BEEN COMPLETED.
[2024-08-16] MEDS: MORPHINE SULFATE (*CRX) 2 MG/ML INJ IV PUSH (16:16)
[2024-08-16] MEDS: ONDANSETRON INJ 4 MG/2 ML VIAL IV PUSH (16:16)
--- NOTE | 2024-08-16 16:20 | PC.NURSE ---
[facility]STER INSISTED PT HAVE PAIN MEDICATION PRIOR TO TRANSPORT. ERP IS NOTIFIED AND MEDICATION GIVEN ORDERED.
--- NOTE | 2024-08-17 13:15 | PC.NURSE ---
blood culture preliminary no growth, pending final
--- NOTE | 2024-08-22 12:31 | PC.NURSE ---
FINAL BLOOD CULTURE RESULTS X2: NO GROWTH
== END 2024-08-16 16:21 | disposition short-term general hospital (02) ==
PROVIDERS: Emergency Provider Internal Medicine Critical Care Medicine; PCP Family Medicine
DX: C14.0 Malignant neoplasm of pharynx, unspecified (principal); L02.11 Cutaneous abscess of neck; J01.40 Acute pansinusitis, unspecified; J44.9 Chronic obstructive pulmonary disease, unspecified; Z79.899 Other long term (current) drug therapy; Z79.82 Long term (current) use of aspirin; Z85.118 Personal history of other malignant neoplasm of bronchus and lung; Z85.3 Personal history of malignant neoplasm of breast
CPT/HCPCS: 36415; 70450; 70486; 70491; 71045; 80053; 81001; 83605; 83690; 84443; 84484; 84550; 85025; 85610; 85730; 87040; 87641; 96361; 96365; 96367; 96375; 99285; J2270; J2405; J2543; J3370; J7120; Q9967